=== PATIENT | female | born 2000 | race American Indian/Alaskan Native ===

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

== ENCOUNTER 2018-06-25 11:55 | Emergency (ER) | payer MEDICAID, OTHER ==
--- NOTE | 2018-06-25 12:37 | Emergency Department Report ---
ED HPI - General Chief complaint: Vaginal Bleeding Stated complaint: 4/5 WKS/SEVERE PAIN Time Seen by Provider: 06/25/18 12:34 Source: patient Mode of arrival: Ambulatory Limitations: No Limitations - History of Present Illness Initial comments: She has a 18-year-old -Welsh female who had a home test that was positive. She has a BODY SANDER appointment scheduled however in the meantime she is started having vaginal spotting. The bleeding is white. There is no discharge. She is having no abdominal pain. No fever. No abdominal tenderness. No CVA tenderness. What she shares with me is different than that shared with nurses. MD Complaint: vaginal bleeding -: Sudden Associated symptoms: vaginal bleeding Vaginal bleeding: light :: Yes Last menstrual period: 05/18/18 Pre- care: none - Related Data Previous Rx's Medication Instructions Recorded Last Taken Type Docusate Sodium [Colace] 100 mg PO BID PRN #20 capsule 03/23/17 Unknown Rx Nitrofurantoin [place]/M-Cryst 100 mg PO Q12HR #14 capsule 03/23/17 Unknown Rx [Macrobid CAP] RX: Magnesium Citrate [Citrate of 300 ml PO NOW #1 bottle 03/23/17 Unknown Rx Magnesia] Metoclopramide HCl [Reglan TAB] 5 mg PO TID #12 tablet 06/21/18 Unknown Rx Nitrofurantoin Monohyd/M-Cryst 100 mg PO BID #14 capsule 06/21/18 Unknown Rx [Macrobid 100 mg Capsule] Allergies Allergy/AdvReac Type Severity Reaction Status Date / Time No Known Allergies Allergy Verified 06/19/15 16:24 ED Review of Systems ROS: Stated complaint: 4/5 WKS/SEVERE PAIN Other details as noted in HPI Comment: All other systems reviewed and negative Constitutional: denies: see HPI Eyes: denies: eye pain ENT: denies: ear pain Respiratory: denies: orthopnea Cardiovascular: denies: palpitations Endocrine: denies: see HPI Gastrointestinal: denies: nausea Genitourinary: abnormal menses, other. denies: urgency, dysuria, frequency, hematuria, discharge Musculoskeletal: denies: back pain Skin: denies: rash Neurological: denies: weakness Psychiatric: denies: anxiety Hematological/Lymphatic: denies: easy bleeding (regular) ED Past Medical Hx - Past Medical History Previous Medical History?: Yes Hx Asthma: Yes - Surgical History Past Surgical History?: Yes Additional Surgical History: 2014 - Social History Smoking Status: Former Smoker Substance Use Type: None - Medications Home Medications: Home Medications Medication Instructions Recorded Confirmed Last Taken Type Docusate Sodium [Colace] 100 mg PO BID PRN #20 capsule 03/23/17 Unknown Rx Nitrofurantoin [place]/M-Cryst 100 mg PO Q12HR #14 capsule 03/23/17 Unknown Rx [Macrobid CAP] RX: Magnesium Citrate [Citrate of 300 ml PO NOW #1 bottle 03/23/17 Unknown Rx Magnesia] Metoclopramide HCl [Reglan TAB] 5 mg PO TID #12 tablet 06/21/18 Unknown Rx Nitrofurantoin Monohyd/M-Cryst 100 mg PO BID #14 capsule 06/21/18 Unknown Rx [Macrobid 100 mg Capsule] ED Physical Exam - General Limitations: No Limitations General appearance: alert - Head Head exam: Present: atraumatic - Eye Eye exam: Present: normal appearance, EOMI Pupils: Present: normal accommodation - ENT ENT exam: Present: normal exam - Neck Neck exam: Present: normal inspection - Respiratory Respiratory exam: Present: normal lung sounds bilaterally - Cardiovascular Cardiovascular Exam: Present: regular rate - GI/Abdominal GI/Abdominal exam: Present: soft, normal bowel sounds. Absent: tenderness - Rectal Rectal exam: Absent: deferred - External exam: Present: normal external exam, other (os closed) Speculum exam: Present: vaginal bleeding. Absent: cervical discharge, foreign body Bi-manual exam: Present: normal bi-manual exam - Extremities Exam Extremities exam: Present: normal inspection, full ROM - Back Exam Back exam: Present: normal inspection, full ROM - Neurological Exam Neurological exam: Present: alert, oriented X3 - Psychiatric Psychiatric exam: Present: normal affect, normal mood - Skin Skin exam: Present: warm, dry ED Course Vital Signs 06/25/18 06/25/18 06/25/18 12:04 16:59 17:11 Temperature 98.7 F 98.7 F Pulse Rate 73 65 65 Respiratory 18 18 Rate Blood Pressure 124/57 113/74 O2 Sat by Pulse 100 100 100 Oximetry ED Medical Decision Making - Lab Data Result diagrams: 06/25/18 12:49 06/25/18 12:49 - Radiology Data Radiology results: report reviewed, image reviewed - Medical Decision Making hcg noted rh pos no anemia ultrasound noted pt educated on plan of care will follow up with obgyn pt shares she has been trying to get but has had difficulty Labs 06/25/18 06/25/18 06/25/18 12:49 12:49 12:49 WBC 5.7 RBC 4.57 Hgb 10.1 Hct 31.7 MCV 69 L MCH 22 L MCHC 32 RDW 16.5 H Plt Count 457 H Sodium 135 L Potassium 4.2 Chloride 99.5 Carbon Dioxide 23 Anion Gap 17 BUN 8 Creatinine 0.5 L Estimated GFR > 60 BUN/Creatinine Ratio 16 Glucose 90 Calcium 9.4 HCG, Quant 97574 H Urine Color Urine Turbidity Urine pH Ur Specific [place] Urine Protein Urine Glucose (UA) Urine Ketones Urine Blood Urine Nitrite Urine Bilirubin Urine Urobilinogen Ur Leukocyte Esterase Urine WBC (Auto) Urine RBC (Auto) U Epithel Cells (Auto) Urine Mucus Urine HCG, Qual Blood Type 06/25/18 06/25/18 12:49 13:04 WBC RBC Hgb Hct MCV MCH MCHC RDW Plt Count Sodium Potassium Chloride Carbon Dioxide Anion Gap BUN Creatinine Estimated GFR BUN/Creatinine Ratio Glucose Calcium HCG, Quant Urine Color Yellow Urine Turbidity Clear Urine pH 6.0 Ur Specific [place] 1.015 Urine Protein <15 mg/dl Urine Glucose (UA) Neg Urine Ketones Neg Urine Blood Neg Urine Nitrite Neg Urine Bilirubin Neg Urine Urobilinogen < 2.0 Ur Leukocyte Esterase Neg Urine WBC (Auto) 1.0 Urine RBC (Auto) 1.0 U Epithel Cells (Auto) 6.0 Urine Mucus Few Urine HCG, Qual Positive A Blood Type A POSITIVE - Differential Diagnosis ro spont ab Critical care attestation.: If time is entered above; I have spent that time in minutes in the direct care of this critically ill patient, excluding procedure time. ED Disposition Clinical Impression: , Threatened Disposition: - TO HOME OR SELFCARE Is pt being admited?: No Does the pt Need Aspirin: No Condition: Stable Instructions: Threatened Miscarriage (ED), (ED) Additional Instructions: PELVIC REST MULTIVIT DAILY HYDRATE WELL WITH WATER FOLLOW UP WITH OBGYN [place] [id number] BLOOD TYPE IS RH POS TYLENOL FOR ACHES AND PAINS Referrals: PRIMARY CARE, [Primary Care Provider] - 3-5 Days Forms: Work/School Release Form(ED) Time of Disposition: 16:48
[2018-06-25 13:01] LABS: Hematocrit 31.7 % (30.3-42.9); Hemoglobin 10.1 gm/dl (10.1-14.3); Mean Corpuscular HGB Conc 32 % (30-34); Mean Corpuscular Volume 69 fl (79-97); Platelet Count 457 K/mm3 (140-440); Red Blood Count 4.57 M/mm3 (3.65-5.03); Red Cell Distribution Width 16.5 % (13.2-15.2)
[2018-06-25 13:21] LABS: BUN/Creatinine Ratio 16; Blood Urea Nitrogen 8 mg/dL (7-17); Calcium 9.4 mg/dL (8.4-10.2); Hemolysis Index 3
[2018-06-25 13:31] LABS: Bilirubin,Urine NEG (Negative); Blood,Urine NEG (Negative); Mucus,Urine FEW /HPF; Protein,Urine <15 mg/dL mg/dL (Negative); Urobilinogen,Urine < 2.0 mg/dL (<2.0)
[2018-06-25 13:34] LABS: Color,Urine Yellow (Yellow); HCG Qualitative,Urine Positive (Negative)
--- NOTE | 2018-06-25 16:40 | Ultrasound Report ---
FINAL REPORT PROCEDURE: Obstetrical ultrasound. TECHNIQUE: Real-time transabdominal sonography of the uterus, placenta, amniotic fluid, adnexa, and fetus was performed with image documentation. Measurements were obtained to determine age/size. M-mode Doppler was used to document heartbeat. CPT 80090 HISTORY: Vaginal bleeding during . COMPARISON: No prior studies are available for comparison. FINDINGS: Image quality is limited because the patient's bladder was incompletely distended. The uterus measure s 9.9 centimeters x 5.2 centimeters x 5.7 centimeters. The myometrium is grossly normal. There may be an intrauterine gestational sac present, but this is suboptimally visualized. This should be better seen by transvaginal imaging. Both ovaries are grossly normal. IMPRESSION: Possible intrauterine gestational sac.
--- NOTE | 2018-06-25 16:44 | Ultrasound Report ---
FINAL REPORT PROCEDURE: Transvaginal obstetrical ultrasound. TECHNIQUE: Real-time transvaginal sonography of the uterus, placenta, amniotic fluid, adnexa, and fe tus was performed with image documentation. Measurements were obtained to determine age/size. M -mode Doppler was used to document heartbeat. CPT 58317 HISTORY: Vaginal bleeding during . COMPARISON: No prior studies are available for comparison. FINDINGS: The uterus appears normal in size. The myometrium is uniform. There is probably a nabothian cyst pres ent. There is an intrauterine gestational sac. A yolk sac and very small pole are visible. The crown-rump length measurement is only 1.7 millimeters. This is too small to estimate a menstrual age. A definite heartbeat was not detected. Again it may be too early. The mean gestational sac diameter is 14 millimeters. This indicates a menstrual age of 6 weeks 2 days. The estimated date of confinemen t would be 02/16/2019. Both ovaries appear normal in size. There is a cyst in the right ovary measuri ng 2.1 centimeters. IMPRESSION: Very early intrauterine . Follow-up recommended.
[2018-06-25 17:11] VITALS: BP 113/74
== END 2018-06-25 17:12 | disposition home or self-care (01) ==
LOC: ED 11:55
DX: O20.0 Threatened abortion (principal); O99.511 Diseases of the respiratory system complicating pregnancy, first trimester; J45.909 Unspecified asthma, uncomplicated; Z87.891 Personal history of nicotine dependence; Z3A.01 Less than 8 weeks gestation of pregnancy
CPT/HCPCS: 36415; 76801; 76817; 80048; 81001; 81025; 84702; 85027; 86900; 86901

== ENCOUNTER 2018-08-06 00:23 | Emergency (ER) | payer MEDICAID ==
--- NOTE | 2018-08-06 03:45 | Emergency Department Report ---
ED Abdominal Pain HPI - General Chief Complaint: Vaginal Bleeding Stated Complaint: PREG 10 WKS/CANNOT EAT/DRINK Time Seen by Provider: 08/06/18 03:16 Source: patient Mode of arrival: Ambulatory Limitations: No Limitations - Related Data Previous Rx's Medication Instructions Recorded Last Taken Type Docusate Sodium [Colace] 100 mg PO BID PRN #20 capsule 03/23/17 Unknown Rx Magnesium Citrate [Citrate of 300 ml PO NOW #1 bottle 03/23/17 Unknown Rx Magnesia] Nitrofurantoin [place]/M-Cryst 100 mg PO Q12HR #14 capsule 03/23/17 Unknown Rx [Macrobid CAP] Metoclopramide HCl [Reglan TAB] 5 mg PO TID #12 tablet 06/21/18 Unknown Rx Nitrofurantoin Monohyd/M-Cryst 100 mg PO BID #14 capsule 06/21/18 Unknown Rx [Macrobid 100 mg Capsule] Allergies Allergy/AdvReac Type Severity Reaction Status Date / Time No Known Allergies Allergy Verified 06/19/15 16:24 ED Review of Systems ROS: Stated complaint: PREG 10 WKS/CANNOT EAT/DRINK Other details as noted in HPI ED Past Medical Hx - Past Medical History Hx Asthma: Yes - Surgical History Additional Surgical History: 2014 - Social History Smoking Status: Former Smoker Substance Use Type: None - Medications Home Medications: Home Medications Medication Instructions Recorded Confirmed Last Taken Type Docusate Sodium [Colace] 100 mg PO BID PRN #20 capsule 03/23/17 Unknown Rx Magnesium Citrate [Citrate of 300 ml PO NOW #1 bottle 03/23/17 Unknown Rx Magnesia] Nitrofurantoin [place]/M-Cryst 100 mg PO Q12HR #14 capsule 03/23/17 Unknown Rx [Macrobid CAP] Metoclopramide HCl [Reglan TAB] 5 mg PO TID #12 tablet 06/21/18 Unknown Rx Nitrofurantoin Monohyd/M-Cryst 100 mg PO BID #14 capsule 06/21/18 Unknown Rx [Macrobid 100 mg Capsule] ED Physical Exam - General Limitations: No Limitations Critical care attestation.: If time is entered above; I have spent that time in minutes in the direct care of this critically ill patient, excluding procedure time. ED Disposition Condition: Stable Referrals: CONY BURCIAGA MD [Primary Care Provider] - 3-5 Days
--- NOTE | 2018-08-06 04:26 | Emergency Department Report ---
ED N/V/D HPI - General Chief complaint: Vaginal Bleeding Stated complaint: PREG 10 WKS/CANNOT EAT/DRINK Time Seen by Provider: 08/06/18 03:16 Source: patient Mode of arrival: Ambulatory Limitations: No Limitations - History of Present Illness MD complaint: nausea, vomiting, diarrhea, abdominal pain - Related Data Previous Rx's Medication Instructions Recorded Last Taken Type Docusate Sodium [Colace] 100 mg PO BID PRN #20 capsule 03/23/17 Unknown Rx Magnesium Citrate [Citrate of 300 ml PO NOW #1 bottle 03/23/17 Unknown Rx Magnesia] Nitrofurantoin [place]/M-Cryst 100 mg PO Q12HR #14 capsule 03/23/17 Unknown Rx [Macrobid CAP] Metoclopramide HCl [Reglan TAB] 5 mg PO TID #12 tablet 06/21/18 Unknown Rx Nitrofurantoin Monohyd/M-Cryst 100 mg PO BID #14 capsule 06/21/18 Unknown Rx [Macrobid 100 mg Capsule] Allergies Allergy/AdvReac Type Severity Reaction Status Date / Time No Known Allergies Allergy Verified 06/19/15 16:24 ED Review of Systems ROS: Stated complaint: PREG 10 WKS/CANNOT EAT/DRINK Other details as noted in HPI ED Past Medical Hx - Past Medical History Hx Asthma: Yes - Surgical History Additional Surgical History: 2014 - Social History Smoking Status: Former Smoker Substance Use Type: None - Medications Home Medications: Home Medications Medication Instructions Recorded Confirmed Last Taken Type Docusate Sodium [Colace] 100 mg PO BID PRN #20 capsule 03/23/17 Unknown Rx Magnesium Citrate [Citrate of 300 ml PO NOW #1 bottle 03/23/17 Unknown Rx Magnesia] Nitrofurantoin [place]/M-Cryst 100 mg PO Q12HR #14 capsule 03/23/17 Unknown Rx [Macrobid CAP] Metoclopramide HCl [Reglan TAB] 5 mg PO TID #12 tablet 06/21/18 Unknown Rx Nitrofurantoin Monohyd/M-Cryst 100 mg PO BID #14 capsule 06/21/18 Unknown Rx [Macrobid 100 mg Capsule] ED Physical Exam - General Limitations: No Limitations Critical care attestation.: If time is entered above; I have spent that time in minutes in the direct care of this critically ill patient, excluding procedure time. ED Disposition Condition: Stable Referrals: CONY BURCIAGA MD [Primary Care Provider] - 3-5 Days
[2018-08-06 05:04] LABS: Amorphous Crystals,Urine 2+; Bilirubin,Urine NEG (Negative); Blood,Urine NEG (Negative); Color,Urine Yellow (Yellow); Mucus,Urine 3+ /HPF; Urobilinogen,Urine < 2.0 mg/dL (<2.0)
[2018-08-06 05:08] LABS: WBC,Urine < 1.0 /HPF (0.0-6.0)
== END 2018-08-06 04:30 | disposition left against medical advice (07) ==
LOC: ED 00:23
DX: O26.891 Other specified pregnancy related conditions, first trimester (principal); Z53.21 Procedure and treatment not carried out due to patient leaving prior to being seen by health care provider
CPT/HCPCS: 81001

== ENCOUNTER 2018-12-31 01:54 | Outpatient (CLI) | payer MEDICAID ==
[2018-12-31 02:19] VITALS: BP 124/80
[2018-12-31] MEDS ORDERED: LACTATED RINGERS 500 ML IV ONE (02:19)
== END 2018-12-31 03:25 | disposition home or self-care (01) ==
LOC: TRG 01:54
PROVIDERS: ATTEND Obstetrics & Gynecology
DX: O62.9 Abnormality of forces of labor, unspecified (principal); O24.410 Gestational diabetes mellitus in pregnancy, diet controlled; O99.513 Diseases of the respiratory system complicating pregnancy, third trimester; J45.909 Unspecified asthma, uncomplicated; Z3A.31 31 weeks gestation of pregnancy
CPT/HCPCS: 59025; 87086; J7120

== ENCOUNTER 2019-02-12 15:32 | Outpatient (CLI) | payer MEDICAID ==
[2019-02-12 15:58] VITALS: BP 135/80
== END 2019-02-12 16:44 | disposition home or self-care (01) ==
LOC: TRG 15:32
PROVIDERS: ATTEND Obstetrics & Gynecology
DX: O47.1 False labor at or after 37 completed weeks of gestation (principal); Z3A.38 38 weeks gestation of pregnancy
CPT/HCPCS: 59025

== ENCOUNTER 2019-02-22 00:16 | Outpatient (CLI) | payer MEDICAID ==
[2019-02-22] MEDS ORDERED: LACTATED RINGERS 1,000 ML IV ONE (01:03)
[2019-02-22 01:16] VITALS: BP 130/74
== END 2019-02-22 02:24 | disposition home or self-care (01) ==
LOC: TRG 00:16
PROVIDERS: ATTEND Obstetrics & Gynecology
DX: O26.893 Other specified pregnancy related conditions, third trimester (principal); R10.30 Lower abdominal pain, unspecified; G43.909 Migraine, unspecified, not intractable, without status migrainosus; Z3A.39 39 weeks gestation of pregnancy; Z87.891 Personal history of nicotine dependence
CPT/HCPCS: 59025; 96360; J7120

== ENCOUNTER 2019-02-27 16:13 | Inpatient (IN) | payer MEDICAID ==
[2019-02-27] MEDS ORDERED: LACTATED RINGERS 1,000 ML ONE (17:13)
--- NOTE | 2019-02-27 17:34 | History and Physical Report ---
History of Present Illness Date of examination: 02/27/19 Date of admission: 02/27/19 Chief complaint: Contractions, elevated BP, and late decels at triage. History of present illness: Patient is a 18 yo at 40.1 weeks EGA who presents reporting contractions q6-7 minutes since this morning. She reports positive movement, denies LOF or vaginal bleeding. Denies PIZARRO, scotomata, nausea, RUQ or epigastric pain. She has had care with [facility] supervisor since 14 weeks EGA, and has not been seen since 35 weeks EGA. 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 ) Family/Genetic History: diabetes - Obstetrical History Expected Date of Delivery: 02/26/19 Actual Gestation: 40 Week(s) 1 Day(s) : 2 Para: 0 Hx # Term Pregnancies: 0 Spontaneous Abortions: 1 Induced : 0 Number of Living Children: 0 Medications and Allergies Allergies Allergy/AdvReac Type Severity Reaction Status Date / Time No Known Allergies Allergy Verified 06/19/15 16:24 Home Medications Medication Instructions Recorded Confirmed Last Taken Type Docusate Sodium [Colace] 100 mg PO BID PRN #20 capsule 03/23/17 Unknown Rx Nitrofurantoin [place]/M-Cryst 100 mg PO Q12HR #14 capsule 03/23/17 Unknown Rx [Macrobid CAP] RX: Magnesium Citrate [Citrate of 300 ml PO NOW #1 bottle 03/23/17 Unknown Rx Magnesia] Metoclopramide HCl [Reglan TAB] 5 mg PO TID #12 tablet 06/21/18 Unknown Rx Nitrofurantoin Monohyd/M-Cryst 100 mg PO BID #14 capsule 06/21/18 Unknown Rx [Macrobid 100 mg Capsule] Review of Systems All systems: negative Eyes: no blurred vision, no diplopia Cardiovascular: no chest pain Respiratory: no shortness of breath Gastrointestinal: no nausea Genitourinary: contractions, no vaginal bleeding, no vaginal discharge, no leakage of fluid, no genital sores Neurological: no headaches - Vital Signs Vital signs: Vital Signs Pulse Pulse Ox 97 H 99 02/27/19 16:16 02/27/19 16:16 Temp Pulse Resp BP Pulse Ox 99.3 F 89 21 128/88 99 02/27/19 16:34 02/27/19 17:19 02/27/19 16:34 02/27/19 17:19 02/27/19 17:16 - Physical Exam Lungs: Positive: Normal air movement Abdomen: Positive: normal appearance, soft (gravid) Genitourinary (Female): Positive: normal external genitalia, normal perenium Vagina: Positive: normal moisture Uterus: Positive: enlarged (gravid), normal contour Anus/Rectum: Positive: normal perianal skin Extremities: Positive: normal Deep Tendon Reflex Grade: Normal +2 - Obstetrical FHR: category 2 (2 late decelerations in a 45 minute period, moderate variability, positive accelerations) Uterine Contraction Monitor Mode: External Cervical Dilatation: 3 Cervical Effacement Percentage: 60 station: -2 Uterine Contraction Frequency (min): 6 Uterine Contraction Duration: 60 Uterine Contraction Pattern: Regular Uterine Tone Measurement Phase: Contraction Uterine Contraction Intensity: Moderate Results All other labs normal. Assessment and Plan 18 yo at 40.1 weeks EGA Early labor Elevated blood pressure without diagnosis of gestational hypertension- collect PIH labs Limited care at term- BPP now Admit to L&D for monitoring and augmentation of labor GBS unknown- administer Ampicillin prophylaxis HSV seropositive- no current outbreaks Asthma- no Hemabate Glucose intolerant, no 3 hr GTT- assess glucose Anemia, receiving iron infusions Augment with Pitocin, anticipate
[2019-02-27] MEDS ORDERED: NARCAN 0.4 MG/1 ML IV PRN (17:37)
[2019-02-27] MEDS ORDERED: STADOL IV PRN (17:37)
[2019-02-27] MEDS ORDERED: ZOFRAN IV PRN (17:37)
[2019-02-27] MEDS ORDERED: SUBLIMAZE IV PRN (17:37)
[2019-02-27] MEDS ORDERED: BRETHINE IVP PRN (17:37)
[2019-02-27] MEDS ORDERED: PHENERGAN PO PRN (17:37)
[2019-02-27] MEDS ORDERED: BRETHINE SUB-Q PRN (17:37)
[2019-02-27] MEDS ORDERED: MINERAL OIL PO PRN (17:37)
[2019-02-27] MEDS ORDERED: XYLOCAINE 2% INFILTRATI ONE (17:37)
[2019-02-27] MEDS ORDERED: AMPICILLIN/NS 2 GM/100 ML 2 GM/100 ML BAG IV ONE ×2 (17:57→23:00)
[2019-02-27] MEDS ORDERED: PITOCin/NS 30 UNIT/500ML 30 UNITS/500 ML BAG IV SCH ×2 (18:00)
[2019-02-27] MEDS ORDERED: LACTATED RINGERS 1,000 ML IV SCH ×2 (18:00)
[2019-02-27] MEDS ORDERED: PITOCin/NS 20 UNIT/1000ML DRIP 20 UNITS/1,000 ML BAG IV SCH (18:00)
[2019-02-27 19:23] LABS: Hematocrit 32.5 % (30.3-42.9); Hemoglobin 10.3 gm/dl (10.1-14.3); Mean Corpuscular HGB Conc 32 % (30-34); Mean Corpuscular Volume 72 fl (79-97); Platelet Count 363 K/mm3 (140-440); Red Blood Count 4.52 M/mm3 (3.65-5.03)
[2019-02-27 19:31] LABS: Red Cell Distribution Width 28.8 % (13.2-15.2)
[2019-02-27 19:43] LABS: Alanine Aminotransferase 8 units/L (7-56); Uric Acid 4.8 mg/dL (3.5-7.6)
[2019-02-27 19:51] LABS: Bilirubin,Urine NEG (Negative); Blood,Urine NEG (Negative); Color,Urine Yellow (Yellow); Protein,Urine <15 mg/dL mg/dL (Negative); Urobilinogen,Urine < 2.0 mg/dL (<2.0)
--- NOTE | 2019-02-27 19:57 | Progress Note ---
Assessment and Plan 18 yo at 40.1 weeks EGA Early labor Elevated blood pressure without diagnosis of gestational hypertension GBS unknown- administer Ampicillin prophylaxis Asthma- no Hemabate Glucose intolerant, no 3 hr GTT- assess glucose Augment with Pitocin, anticipate Subjective - Subjective Date of service: 02/27/19 Principal diagnosis: Elevated BP and late decelerations Interval history: Pt experienced one 3-minute long contraction. Patient reports: movement normal, no loss of fluid Objective - Vital Signs Vital Signs: Vital Signs - 12hr 02/27/19 02/27/19 02/27/19 16:16 16:19 16:21 Temperature Pulse Rate 97 H 96 H 93 H Respiratory Rate Blood Pressure 130/74 Blood Pressure [Left] O2 Sat by Pulse 99 99 Oximetry 02/27/19 02/27/19 02/27/19 16:26 16:31 16:34 Temperature 99.3 F Pulse Rate 84 87 89 Respiratory 21 Rate Blood Pressure 139/75 Blood Pressure 139/75 [Left] O2 Sat by Pulse 99 99 99 Oximetry 02/27/19 02/27/19 02/27/19 16:36 16:41 16:46 Temperature Pulse Rate 91 H 99 H 88 Respiratory Rate Blood Pressure Blood Pressure [Left] O2 Sat by Pulse 100 98 98 Oximetry 02/27/19 02/27/19 02/27/19 16:50 16:51 16:56 Temperature Pulse Rate 91 H 96 H 90 Respiratory Rate Blood Pressure 132/84 Blood Pressure [Left] O2 Sat by Pulse 98 99 Oximetry 02/27/19 02/27/19 02/27/19 17:01 17:05 17:06 Temperature Pulse Rate 88 90 89 Respiratory Rate Blood Pressure 122/83 Blood Pressure [Left] O2 Sat by Pulse 99 99 Oximetry 02/27/19 02/27/19 02/27/19 17:11 17:16 17:19 Temperature Pulse Rate 92 H 87 89 Respiratory Rate Blood Pressure 128/88 Blood Pressure [Left] O2 Sat by Pulse 99 99 Oximetry 02/27/19 02/27/19 02/27/19 17:34 17:50 18:19 Temperature Pulse Rate 95 H 83 92 H Respiratory Rate Blood Pressure 135/83 135/81 145/70 Blood Pressure [Left] O2 Sat by Pulse Oximetry 02/27/19 02/27/19 02/27/19 19:20 19:36 19:53 Temperature Pulse Rate 81 87 93 H Respiratory Rate Blood Pressure 145/92 123/71 135/90 Blood Pressure [Left] O2 Sat by Pulse Oximetry - Exam Lungs: Normal air movement Abdomen: Present: normal appearance, soft Uterus: Present: normal FHR: category 1 Uterine Contraction Monitor Mode: External Cervical Dilatation: 3 Cervical Effacement Percentage: 60 station: -2 Uterine Contraction Frequency (min): 6 Uterine Contraction Duration: 1-3 minutes Uterine Contraction Pattern: Irregular - Labs Labs: Abnormal Labs 02/27/19 02/27/19 18:38 18:38 MCV 72 L MCH 23 L RDW 28.8 H Creatinine 0.4 L Lactate Dehydrogenase 302 H Laboratory Results - last 24 hr 02/27/19 02/27/19 02/27/19 18:38 18:38 18:38 WBC 10.2 RBC 4.52 Hgb 10.3 Hct 32.5 MCV 72 L MCH 23 L MCHC 32 RDW 28.8 H Plt Count 363 Creatinine 0.4 L Estimated GFR > 60 Uric Acid 4.8 AST 27 ALT 8 Lactate Dehydrogenase 302 H Urine Bilirubin Neg Urine RBC (Auto) 5.0 U Epithel Cells (Auto) 2.0
[2019-02-27] MEDS ORDERED: AMPICILLIN/NS 1 GM/50 ML 1 GM/50 ML BAG IV SCH (21:39)
--- NOTE | 2019-02-28 08:16 | Anesthesia Consultation ---
Anesthesia Consult and Med Hx Date of service: 02/28/19 - Airway Anesthetic Teeth Evaluation: Good ROM Head & Neck: Adequate Mental/Hyoid Distance: Adequate Mallampati Class: Class II Intubation Access Assessment: Probably Good - Pulmonary Exam CTA: Yes - Cardiac Exam Cardiac Exam: RRR - Pre-Operative Health Status ASA Pre-Surgery Classification: ASA2 Proposed Anesthetic Plan: Epidural - Pulmonary Hx Smoking: No Hx Asthma: No Hx Respiratory Symptoms: No SOB: No COPD: No Home Oxygen Therapy: No Hx Pneumonia: No Hx Sleep Apnea: No - Cardiovascular System Hx Hypertension: No Hx Coronary Artery Disease: No Hx Heart Attack/AMI: No Hx Angina: No Hx Percutaneous Transluminal Coronary Angioplasty (PTCA): No Hx Cardia Arrhythmia: No Hx Pacemaker: No Hx Internal Defibrillator: No Hx Valvular Heart Disease: No Hx Heart Murmur: No Hx Peripheral Vascular Disease: No - Central Nervous System Hx Neuromuscular Disorder: No Hx Seizures: No CVA: No Hx Back Pain: No Hx Psychiatric Problems: No - Gastrointestinal Hx Ulcer: No Hx Gastroesophageal Reflux Disease: No - Endocrine Hx Renal Disease: No Hx End Stage Renal Disease: No Hx Cirrhosis: No Hx Liver Disease: No Hx Insulin Dependent Diabetes: No Hx Non-Insulin Dependent Diabetes: No Hx Thyroid Disease: No Hx Hypothyroidism: No Hx Hyperthyroidism: No - Hematic Hx Anemia: Yes Hx Sickle Cell Disease: No - Other Systems Hx Alcohol Use: No Hx Substance Use: No Hx Cancer: No Hx Obesity: Yes (80 BMI)
[2019-02-28] MEDS ORDERED: NARCAN 2 MG/2 ML IV PRN (08:30)
[2019-02-28] MEDS ORDERED: fentaNYL-BUPIV 2 MCG/ML-0.125% 200 MCG/100 ML BAG EPIDURAL SCH (09:00)
--- NOTE | 2019-02-28 10:41 | Procedure Note ---
OB Delivery Note - Delivery Date of Delivery: 02/28/19 Surgeon: MARLEN LUCAS Estimated blood loss: other (400 mL) - Vaginal Delivery presentation: vertex Delivery position: OA Intrapartum events: PROM->1hr before delivery, meconium, decreased FHT variability, mult.variable deceleratio, shoulder dystocia Delivery induction: oxytocin Delivery augmentation: pitocin Delivery monitor: external FHT, external uterine Route of delivery: Delivery placenta: spontaneous Delivery cord: 3 umbilical vessels Episiotomy: midline Delivery repair: vicryl Anesthesia: epidural Delivery comments: Pt progressed to complete/complete/+3 and pushed to deliver a viable female over midline episiotomy under epidural anesthesia via . Head delivered in EDGAR position. ~30 second shoulder dystocia resolved with suprapubic pressure and Usman position. Shoulders and body then delivered. Cord clamped and cut and handed to NICU staff in attendance. Cord blood collected. Placenta delivered spontaneously (3VC, intact). Vagina and perineum explored. Midline episiotomy with extension repaired with 2-0 Vicryl in a standard fashion. EBL 4 00 mL. - A at 1 minute: 6 at 5 minutes: 9 Gender: Female (3757g (8lb 5 oz) @ 0956 am)
[2019-02-28] MEDS ORDERED: TYLENOL PO PRN (13:35)
[2019-02-28] MEDS ORDERED: PHENERGAN PO PRN (13:35)
[2019-02-28] MEDS ORDERED: PHENERGAN PR PRN (13:35)
[2019-02-28] MEDS ORDERED: TUCKS PAD TP PRN (13:35)
[2019-02-28] MEDS ORDERED: ZOFRAN IV PRN (13:35)
[2019-02-28] MEDS ORDERED: DERMOPLAST TP PRN (13:35)
[2019-02-28] MEDS ORDERED: SODIUM CHLORIDE FLUSH SYRINGE 10 ML IV NR (13:35)
[2019-02-28] MEDS ORDERED: PITOCin/NS 20 UNIT/1000ML DRIP 20 UNITS/1,000 ML BAG IV SCH (13:35)
[2019-02-28] MEDS ORDERED: LANSINOH TP PRN ×2 (13:35)
[2019-02-28] MEDS ORDERED: DULCOLAX PR PRN (13:35)
[2019-02-28] MEDS ORDERED: BENADRYL PO PRN (13:35)
[2019-02-28] MEDS ORDERED: MILK OF MAGNESIA PO PRN (13:35)
[2019-02-28] MEDS: IBUPROFEN PO SCH ×2 (14:24→22:51)
[2019-02-28] MEDS: FEOSOL PO SCH (22:51)
[2019-02-28] MEDS: COLACE PO SCH (22:52)
[2019-02-28 23:27] LABS: Hemoglobin 8.9 gm/dl (10.1-14.3)
[2019-03-01] MEDS: IBUPROFEN PO SCH ×2 (06:39→12:42)
[2019-03-01] MEDS: FEOSOL PO SCH ×2 (09:56→22:01)
[2019-03-01] MEDS: COLACE PO SCH ×2 (09:56→22:01)
[2019-03-01] MEDS ORDERED: BOOSTRIX IM ONE (10:42)
[2019-03-01] MEDS ORDERED: M-M-R II VACCINE SUB-Q ONE (10:42)
--- NOTE | 2019-03-01 12:01 | Progress Note ---
Assessment and Plan Pt is PPD1 s/p Nursing well VSS Acute anemia- iron supplementation Anticipate discharge to home tomorrow Subjective - Subjective Principal diagnosis: Interval history: Pt is PPD1 s/p with shoulder dystocia Patient reports: appetite normal, voiding normally, pain well controlled, ambulating normally [place]: nursing well, bottle feeding (mostly breast) Objective - Vital Signs Latest vital signs: Vital Signs Temp Pulse Resp BP BP Pulse Ox 03/01/19 08:51 98.2 F 18 139/76 03/01/19 08:00 98.2 F 94 H 18 139/76 03/01/19 01:43 98.3 F 79 20 124/78 02/28/19 21:15 98.2 F 93 H 20 135/81 02/28/19 16:11 98.5 F 81 18 110/60 99 02/28/19 12:51 98.7 F 81 18 134/80 99 02/28/19 12:22 82 129/68 02/28/19 12:15 78 128/77 02/28/19 12:14 67 124/73 02/28/19 12:07 81 124/65 Intake and Output 02/28/19 03/01/19 03/01/19 23:59 07:59 15:59 Intake Total 360 240 Balance 360 240 Intake: Intake, Free Water 360 240 Other: # Voids Void 1 2 - Exam Lungs: Present: Normal air movement Abdomen: Present: normal appearance, soft Uterus: Present: normal, firm, fundal height below umbilicus Extremities: Present: normal - Labs Labs: Abnormal lab results 02/28/19 Range/Units 22:48 Hgb 8.9 L (10.1-14.3) gm/dl Hct 28.0 L (30.3-42.9) %
--- NOTE | 2019-03-01 13:37 | Discharge Summary ---
Providers - Providers Date of Admission: 02/27/19 18:51 Date of discharge: 03/01/19 Attending physician: MARLEN LUCSA Primary care physician: MARLEN LUCAS Hospitalization Reason for admission: other (Early labor with elevated BP and 2 late decels) Delivery: Procedure details: Augmented with Pitocin. Shoulder dystocia ~30 seconds resolved with Usman and suprapubic pressure. Episiotomy: midline (with extension) Other procedures: none complications: none Discharge diagnosis: IUP at term delivered baby: female Hospital course: Gestational hypertension diagnosed in hospital. Progressed to of viable infant, apgars 6/9. Met discharge criteria on PPD1. Condition at discharge: Good Disposition: DC-01 TO HOME OR SELFCARE Plan - Discharge Medications Prescriptions: Ferrous Sulfate [Ferrous Sulfate 324 MG] 324 mg PO BID #60 tablet. Ibuprofen [Motrin] 600 mg PO Q6H PRN #60 tablet PRN Reason: Pain - Provider Discharge Summary Activity: routine, no sex for 6 weeks, no heavy lifting 4 weeks, no strenuous exercise Diet: routine Instructions: routine Additional instructions: [] Smoking cessation referral if applicable(refer to patient education folder for contact #) [] Refer to [facility] Book[facility] Call your doctor immediately for: * Fever > 100.5 * Heavy vaginal bleeding ( >1 pad per hour) * Severe persistent headache * Shortness of breath * Reddened, hot, painful area to leg or breast * Drainage or odor from incision. * Keep incision clean and dry at all times and follow doctor's instructions regarding bathing/showering - Follow up plan Follow up: MARLEN LUCAS MD [Primary Care Provider] - 7 Days (Schedule appointment for blood pressure check at [facility]'s sql database administrator.)
[2019-03-01] MEDS: NORCO 5/325 PO PRN (22:01)
[2019-03-02] MEDS: IBUPROFEN PO SCH ×3 (04:20→07:31)
[2019-03-02] MEDS ORDERED: BOOSTRIX IM ONE (06:00)
[2019-03-02] MEDS: NORCO 5/325 PO PRN (07:31)
[2019-03-02 09:13] VITALS: BP 144/93
[2019-03-02] MEDS: FEOSOL PO SCH (10:44)
[2019-03-02] MEDS: COLACE PO SCH (10:44)
--- NOTE | 2019-03-02 12:46 | Progress Note ---
Assessment and Plan Pt is PPD2 s/p Bottle feeding Gestational hypertension Acute anemia- iron supplementation Discharge to home today Subjective - Subjective Date of service: 03/02/19 Principal diagnosis: Interval history: Pt is PPD2 s/p with shoulder dystocia. Gestational hypertension diagnosed in labor. Patient reports: appetite normal, voiding normally, pain well controlled, ambulating normally : doing well, bottle feeding Objective - Vital Signs Latest vital signs: Vital Signs Temp Pulse Resp BP Pulse Ox 03/02/19 07:44 73 144/93 100 03/02/19 01:51 98.6 F 82 18 132/78 96 03/01/19 16:50 98.5 F 99 H 18 140/79 99 Intake and Output 03/01/19 03/02/19 03/02/19 23:59 07:59 15:59 Intake Total 540 600 Balance 540 600 Intake: Oral 380 Intake, Free Water 160 600 Other: Total, Intake Amount 380 # Voids Void 2 4 # Bowel Movements 1 - Exam Lungs: Present: Normal air movement Abdomen: Present: normal appearance, soft Uterus: Present: normal, firm, fundal height below umbilicus Extremities: Present: normal
== END 2019-03-02 13:54 | disposition home or self-care (01) | DRG 775 ==
LOC: TRG 16:13 → LD 18:51 → OB 02-28 12:38
PROVIDERS: ADMIT Obstetrics & Gynecology; ATTEND Obstetrics & Gynecology
PROC: 10E0XZZ Delivery of Products of Conception, External Approach (ICD-10-PCS; principal; 2019-02-28)
PROC: 0W8NXZZ Division of Female Perineum, External Approach (ICD-10-PCS; 2019-02-28)
PROC: 3E0R3BZ Introduction of Anesthetic Agent into Spinal Canal, Percutaneous Approach (ICD-10-PCS; 2019-02-28)
PROC: 00HU33Z Insertion of Infusion Device into Spinal Canal, Percutaneous Approach (ICD-10-PCS; 2019-02-28)
PROC: 3E0234Z Introduction of Serum, Toxoid and Vaccine into Muscle, Percutaneous Approach (ICD-10-PCS; 2019-03-02)
DX: O13.4 Gestational [pregnancy-induced] hypertension without significant proteinuria, complicating childbirth (principal); O99.02 Anemia complicating childbirth; O99.52 Diseases of the respiratory system complicating childbirth; J45.909 Unspecified asthma, uncomplicated; O76 Abnormality in fetal heart rate and rhythm complicating labor and delivery; O66.0 Obstructed labor due to shoulder dystocia; Z37.0 Single live birth; Z23 Encounter for immunization; O77.0 Labor and delivery complicated by meconium in amniotic fluid; Z3A.40 40 weeks gestation of pregnancy
CPT/HCPCS: 36415; 81001; 82565; 83615; 84450; 84460; 84550; 85014; 85018; 85027; 86592; 86850; 86900; 86901; 88307; 90715; G0378; J0290; J0595; J2590; J7120

== ENCOUNTER 2020-07-23 14:18 | Emergency (ER) | payer MEDICAID ==
[2020-07-23 14:27] VITALS: BP 134/86
--- NOTE | 2020-07-23 17:31 | ED Elopement Review ---
ED Pt Elopement review - Results review Lab results: Patient eloped prior to my evaluation. - Call Back decision Pt Call Back Decision: No action required
== END 2020-07-23 14:30 | disposition left against medical advice (07) ==
LOC: ED 14:18
DX: M54.6 Pain in thoracic spine (principal); Z53.21 Procedure and treatment not carried out due to patient leaving prior to being seen by health care provider

== ENCOUNTER 2020-07-24 05:08 | Emergency (ER) | payer SELFPAY ==
[2020-07-24] MEDS ORDERED: SODIUM CHLORIDE 0.9% 1000 ML 1,000 ML IV ONE (05:18)
[2020-07-24] MEDS ORDERED: ONDANSETRON 4 MG/2 ML INJ IV ONE (05:18)
--- NOTE | 2020-07-24 05:23 | Event Note ---
ED Screening Note Date of service: 07/24/20 Time: 05:20 ED Screening Note: 20 yr old female with no significant pmhx presents to ED c/o generalized body aches including low abd pain radiating into her lower back. Onset 3 week ago, worse in the past week. associated symptoms include nausea, subjective fever, urinary frequency and feeling of constipation. This initial assessment/diagnostic orders/clinical plan/treatment(s) is/are subject to change based on patients health status, clinical progression and re- assessment by fellow clinical providers in the ED. Further treatment and workup at subsequent clinical providers discretion. Patient/guardian urged not to elope from the ED as their condition may be serious if not clinically assessed and managed. Initial orders include: Abdominal pain order set
[2020-07-24 05:57] LABS: Alanine Aminotransferase 11 units/L (7-56); Blood Urea Nitrogen 8 mg/dL (7-17); Calcium 9.3 mg/dL (8.4-10.2); Hemolysis Index 0
[2020-07-24 05:57] LABS: Basophils % (Auto) 0.2 % (0.0-1.8); Eosinophils # (Auto) 0.1 K/mm3 (0.0-0.4); Eosinophils % (Auto) 0.5 % (0.0-4.3); Hematocrit 31.9 % (30.3-42.9); Hemoglobin 10.3 gm/dl (10.1-14.3); Lymphocytes # (Auto) 2.4 K/mm3 (1.2-5.4); Lymphocytes % (Auto) 21.1 % (13.4-35.0); Mean Corpuscular HGB Conc 32 % (30-34); Mean Corpuscular Volume 72 fl (79-97); Monocytes % (Auto) 8.7 % (0.0-7.3); Platelet Count 661 K/mm3 (140-440); Red Blood Count 4.45 M/mm3 (3.65-5.03); Red Cell Distribution Width 16.6 % (13.2-15.2)
[2020-07-24 05:58] LABS: Alanine Aminotransferase 10 units/L (7-56); Albumin 4.1 g/dL (3.9-5)
[2020-07-24 05:58] LABS: BUN/Creatinine Ratio 13
[2020-07-24 05:59] LABS: Bilirubin,Direct < 0.2 mg/dL (0-0.2)
[2020-07-24 06:04] LABS: Bilirubin,Urine NEG (Negative); Blood,Urine SM (Negative); Color,Urine Amber (Yellow); Mucus,Urine 3+ /HPF
[2020-07-24 06:07] LABS: HCG Qualitative,Urine Negative (Negative)
[2020-07-24] MEDS ORDERED: traMADol 50 MG TAB PO ONE (06:28)
--- NOTE | 2020-07-24 08:51 | Emergency Department Report ---
ED General Adult HPI - General Chief complaint: Abdominal Pain Stated complaint: BODY PAINS;LOWER STOMACH/BACK Time Seen by Provider: 07/24/20 06:10 Source: patient Mode of arrival: Ambulatory Limitations: No Limitations - History of Present Illness Initial comments: This is a 20-year-old female who reports discomfort and bilateral flank pain of 3 weeks duration. She did not attempt to be seen by medical provider. She denies nausea. She did not take her temperature. She has had no chills. She denies any respiratory complaints. She she did note some urinary frequency. She does have a history of prior UTI. Patient's pain is mild at the time of my encounter. It is intermittent and never severe. -: Gradual, week(s) Location: abdomen Radiation: back Severity scale (0 -10): 4 Quality: aching Consistency: constant Improves with: none Worsens with: none Associated Symptoms: denies other symptoms Treatments Prior to Arrival: none - Related Data Previous Rx's Medication Instructions Recorded Last Taken Type Docusate Sodium [Colace] 100 mg PO BID PRN #20 capsule 03/23/17 Unknown Rx Magnesium Citrate [Citrate of 300 ml PO NOW #1 bottle 03/23/17 Unknown Rx Magnesia] Nitrofurantoin [place]/M-Cryst 100 mg PO Q12HR #14 capsule 03/23/17 Unknown Rx [Macrobid CAP] Metoclopramide HCl [Reglan TAB] 5 mg PO TID #12 tablet 06/21/18 Unknown Rx Nitrofurantoin Monohyd/M-Cryst 100 mg PO BID #14 capsule 06/21/18 Unknown Rx [Macrobid 100 mg Capsule] Ferrous Sulfate [Ferrous Sulfate 324 mg PO BID #60 tablet. 03/01/19 Unknown Rx 324 MG] Ibuprofen [Motrin] 600 mg PO Q6H PRN #60 tablet 03/01/19 Unknown Rx Azithromycin [Zithromax ORAL PWDR] 1 gm PO ONCE #1 packet 07/24/20 Unknown Rx cefUROXime [Ceftin] 250 mg PO Q12H #20 tablet 07/24/20 Unknown Rx traMADoL [Ultram 50 MG tab] 50 mg PO ONCE #10 tablet 07/24/20 Unknown Rx Allergies Allergy/AdvReac Type Severity Reaction Status Date / Time No Known Allergies Allergy Verified 06/19/15 16:24 ED Review of Systems ROS: Stated complaint: BODY PAINS;LOWER STOMACH/BACK Other details as noted in HPI Constitutional: denies: chills, fever Eyes: denies: eye pain, eye discharge, vision change ENT: denies: ear pain, throat pain Respiratory: denies: cough, shortness of breath, wheezing Cardiovascular: denies: chest pain, palpitations Endocrine: no symptoms reported Gastrointestinal: as per HPI, abdominal pain. denies: nausea, vomiting, diarrhea Genitourinary: frequency. denies: urgency, dysuria, discharge Musculoskeletal: back pain. denies: joint swelling, arthralgia Skin: denies: rash, lesions Neurological: denies: headache, weakness, paresthesias Psychiatric: denies: anxiety, depression Hematological/Lymphatic: denies: easy bleeding, easy bruising ED Past Medical Hx - Past Medical History Previous Medical History?: No Hx Hypertension: No Hx Heart Attack/AMI: No Hx Congestive Heart Failure: No Hx Diabetes: No Hx Deep Vein Thrombosis: No Hx Liver Disease: No Hx Renal Disease: No Hx Sickle Cell Disease: No Hx Seizures: No Hx Asthma: No Hx COPD: No Hx HIV: No - Surgical History Hx Pacemaker: No Hx Internal Defibrillator: No Additional Surgical History: 2014 - Social History Smoking Status: Never Smoker Substance Use Type: None - Medications Home Medications: Home Medications Medication Instructions Recorded Confirmed Last Taken Type Docusate Sodium [Colace] 100 mg PO BID PRN #20 capsule 03/23/17 03/02/19 Unknown Rx Magnesium Citrate [Citrate of 300 ml PO NOW #1 bottle 03/23/17 03/02/19 Unknown Rx Magnesia] Nitrofurantoin [place]/M-Cryst 100 mg PO Q12HR #14 capsule 03/23/17 03/02/19 Unknown Rx [Macrobid CAP] Metoclopramide HCl [Reglan TAB] 5 mg PO TID #12 tablet 06/21/18 03/02/19 Unknown Rx Nitrofurantoin Monohyd/M-Cryst 100 mg PO BID #14 capsule 06/21/18 03/02/19 Unknown Rx [Macrobid 100 mg Capsule] Ferrous Sulfate [Ferrous Sulfate 324 mg PO BID #60 tablet. 03/01/19 Unknown Rx 324 MG] Ibuprofen [Motrin] 600 mg PO Q6H PRN #60 tablet 03/01/19 Unknown Rx Azithromycin [Zithromax ORAL PWDR] 1 gm PO ONCE #1 packet 07/24/20 Unknown Rx cefUROXime [Ceftin] 250 mg PO Q12H #20 tablet 07/24/20 Unknown Rx traMADoL [Ultram 50 MG tab] 50 mg PO ONCE #10 tablet 07/24/20 Unknown Rx ED Physical Exam - General Limitations: No Limitations General appearance: alert, in no apparent distress - Head Head exam: Present: atraumatic, normocephalic - Eye Eye exam: Present: normal appearance. Absent: scleral icterus - ENT ENT exam: Present: mucous membranes moist - Neck Neck exam: Present: normal inspection - Respiratory Respiratory exam: Present: normal lung sounds bilaterally. Absent: respiratory distress - Cardiovascular Cardiovascular Exam: Present: regular rate, normal rhythm. Absent: systolic murmur, diastolic murmur, rubs, gallop - GI/Abdominal GI/Abdominal exam: Present: soft, normal bowel sounds. Absent: distended, tenderness, guarding, rebound, rigid - Extremities Exam Extremities exam: Present: normal inspection - Back Exam Back exam: Present: normal inspection, other. Absent: CVA tenderness (R), CVA tenderness (L), muscle spasm, paraspinal tenderness, vertebral tenderness - Neurological Exam Neurological exam: Present: alert, oriented X3, CN II-XII intact. Absent: motor sensory deficit - Psychiatric Psychiatric exam: Present: normal affect, normal mood - Skin Skin exam: Present: warm, dry, intact, normal color. Absent: rash ED Course Vital Signs 07/24/20 05:12 Temperature 98.3 F Pulse Rate 109 H Respiratory 17 Rate Blood Pressure 114/75 O2 Sat by Pulse 95 Oximetry - Reevaluation(s) Reevaluation #1: It would appear the patient symptoms are consistent with pyelonephritis. They are reasonably chronic. She was given ceftriaxone in the emergency department. She will be continued on 07/24/20 08:50 ED Medical Decision Making - Lab Data Result diagrams: 07/24/20 05:21 07/24/20 05:28 Laboratory Results - last 24 hr 07/24/20 07/24/20 07/24/20 05:21 05:21 05:28 WBC 11.3 H RBC 4.45 Hgb 10.3 Hct 31.9 MCV 72 L MCH 23 L MCHC 32 RDW 16.6 H Plt Count 661 H Lymph % (Auto) 21.1 [place] % (Auto) 8.7 H Eos % (Auto) 0.5 Baso % (Auto) 0.2 Lymph # (Auto) 2.4 [place] # (Auto) 1.0 H Eos # (Auto) 0.1 Baso # (Auto) 0.0 Seg Neutrophils % 69.5 Seg Neutrophils # 7.8 H Sodium 136 L Potassium 4.0 Chloride 99.9 Carbon Dioxide 24 Anion Gap 16 BUN 8 Creatinine 0.6 Estimated GFR > 60 BUN/Creatinine Ratio 13 Glucose 99 Calcium 9.3 Total Bilirubin 0.30 0.30 Direct Bilirubin < 0.2 Indirect Bilirubin 0.1 AST 13 14 ALT 10 11 Alkaline Phosphatase 107 106 Total Protein 7.3 7.3 Albumin 4.1 4.0 Albumin/Globulin Ratio 1.3 1.2 Lipase 13 HCG, Qual Urine Color Urine Turbidity Urine pH Ur Specific [place] Urine Protein Urine Glucose (UA) Urine Ketones Urine Blood Urine Nitrite Urine Bilirubin Urine Urobilinogen Ur Leukocyte Esterase Urine WBC (Auto) Urine RBC (Auto) U Epithel Cells (Auto) Urine Mucus Urine HCG, Qual 07/24/20 07/24/20 05:28 05:35 WBC RBC Hgb Hct MCV MCH MCHC RDW Plt Count Lymph % (Auto) [place] % (Auto) Eos % (Auto) Baso % (Auto) Lymph # (Auto) [place] # (Auto) Eos # (Auto) Baso # (Auto) Seg Neutrophils % Seg Neutrophils # Sodium Potassium Chloride Carbon Dioxide Anion Gap BUN Creatinine Estimated GFR BUN/Creatinine Ratio Glucose Calcium Total Bilirubin Direct Bilirubin Indirect Bilirubin AST ALT Alkaline Phosphatase Total Protein Albumin Albumin/Globulin Ratio Lipase HCG, Qual Negative Urine Color Janelle Urine Turbidity Cloudy Urine pH 5.0 Ur Specific [place] 1.029 Urine Protein 100 mg/dl Urine Glucose (UA) Neg Urine Ketones Neg Urine Blood Sm Urine Nitrite Neg Urine Bilirubin Neg Urine Urobilinogen 2.0 Ur Leukocyte Esterase Mod Urine WBC (Auto) 30.0 H Urine RBC (Auto) 22.0 U Epithel Cells (Auto) 19.0 H Urine Mucus 3+ Urine HCG, Qual Negative Critical care attestation.: If time is entered above; I have spent that time in minutes in the direct care of this critically ill patient, excluding procedure time. ED Disposition Clinical Impression: Acute pyelonephritis Disposition: DC TO HOME OR SELFCARE Is pt being admited?: No Does the pt Need Aspirin: No Condition: Stable Instructions: Abdominal Pain (ED), Pyelonephritis, Adult, [id number] Additional Instructions: Follow-up on your urine culture with primary care physician. Antibiotics as directed. Return any acute change or problem. 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 Prescriptions: cefUROXime [Ceftin] 250 mg PO Q12H #20 tablet traMADoL [Ultram 50 MG tab] 50 mg PO ONCE #10 tablet Azithromycin [Zithromax ORAL PWDR] 1 gm PO ONCE #1 packet Referrals: PRIMARY CAREMD [Primary Care Provider] - 3-5 Days [facility] [Provider Group] - 3-5 Days JUAN PABLO RAY MD [Staff Physician] - 3-5 Days Time of Disposition: 08:53
[2020-07-24 09:04] VITALS: BP 112/69
== END 2020-07-24 09:04 | disposition home or self-care (01) ==
LOC: ED 05:08
DX: N10 Acute pyelonephritis (principal); Z79.899 Other long term (current) drug therapy; Z98.890 Other specified postprocedural states
CPT/HCPCS: 36415; 80053; 80076; 81001; 81025; 83690; 84703; 85025; 87086; 96361; 96374; 99283; J2405; J7030

== ENCOUNTER 2020-11-06 15:38 | Emergency (ER) | payer SELFPAY | END 2020-11-06 16:15 | disposition left against medical advice (07) | LOC: ED 15:38 | DX: N89.8 Other specified noninflammatory disorders of vagina (principal); Z53.21 Procedure and treatment not carried out due to patient leaving prior to being seen by health care provider ==

== ENCOUNTER 2021-03-11 15:10 | Emergency (ER) | payer SELFPAY ==
[2021-03-11 15:29] VITALS: BP 96/56
--- NOTE | 2021-03-11 18:45 | Emergency Department Report ---
ED Abdominal Pain HPI - General Chief Complaint: Abdominal Pain Stated Complaint: BODYACHES Time Seen by Provider: 03/11/21 16:01 Source: patient Mode of arrival: Ambulatory Limitations: No Limitations - History of Present Illness Initial Comments: 20-year-old -Japanese female presents to the emergency room complaining of epigastric pain and lightheadedness. She also admits to nausea but no vomiting. She does admit that she smokes cigarettes drinks alcohol and smokes marijuana daily. Her last menstrual period was 03/06/2021. She reports that she is not vaccinated. Has no past medical history currently takes no meds on a daily basis states her pain is 8 out of 10 nothing makes it better worsens with movement and pain is constant but sharp. Patient denies having a primary care provider. MD Complaint: abdominal pain Location: epigastric Radiation: none Migration to: no migration Severity scale (0 -10): 8 Quality: stabbing Consistency: constant Improves With: nothing Worsens With: movement Associated Symptoms: nausea. denies: vomiting - Related Data LMP Date: 03/06/21 Previous Rx's Medication Instructions Recorded Last Taken Type Docusate Sodium [Colace] 100 mg PO BID PRN #20 capsule 03/23/17 Unknown Rx Magnesium Citrate [Citrate of 300 ml PO NOW #1 bottle 03/23/17 Unknown Rx Magnesia] Nitrofurantoin Nye/M-Cryst 100 mg PO Q12HR #14 capsule 03/23/17 Unknown Rx [Macrobid CAP] Metoclopramide HCl [Reglan TAB] 5 mg PO TID #12 tablet 06/21/18 Unknown Rx Nitrofurantoin Monohyd/M-Cryst 100 mg PO BID #14 capsule 06/21/18 Unknown Rx [Macrobid 100 mg Capsule] Ferrous Sulfate [Ferrous Sulfate 324 mg PO BID #60 tablet. 03/01/19 Unknown Rx 324 MG] Ibuprofen [Motrin] 600 mg PO Q6H PRN #60 tablet 03/01/19 Unknown Rx Azithromycin [Zithromax ORAL PWDR] 1 gm PO ONCE #1 packet 07/24/20 Unknown Rx cefUROXime [Ceftin] 250 mg PO Q12H #20 tablet 07/24/20 Unknown Rx traMADoL [Ultram 50 MG tab] 50 mg PO ONCE #10 tablet 07/24/20 Unknown Rx Allergies Allergy/AdvReac Type Severity Reaction Status Date / Time No Known Allergies Allergy Verified 03/11/21 15:29 ED Review of Systems ROS: Stated complaint: BODYACHES Other details as noted in HPI Comment: All other systems reviewed and negative ED Past Medical Hx - Past Medical History Hx Hypertension: No Hx Heart Attack/AMI: No Hx Congestive Heart Failure: No Hx Diabetes: No Hx Deep Vein Thrombosis: No Hx Liver Disease: No Hx Renal Disease: No Hx Sickle Cell Disease: No Hx Seizures: No Hx Asthma: No Hx COPD: No Hx HIV: No - Surgical History Hx Pacemaker: No Hx Internal Defibrillator: No Additional Surgical History: 2014 - Social History Smoking Status: Never Smoker Substance Use Type: None - Medications Home Medications: Home Medications Medication Instructions Recorded Confirmed Last Taken Type Docusate Sodium [Colace] 100 mg PO BID PRN #20 capsule 03/23/17 03/02/19 Unknown Rx Magnesium Citrate [Citrate of 300 ml PO NOW #1 bottle 03/23/17 03/02/19 Unknown Rx Magnesia] Nitrofurantoin Nye/M-Cryst 100 mg PO Q12HR #14 capsule 03/23/17 03/02/19 Unknown Rx [Macrobid CAP] Metoclopramide HCl [Reglan TAB] 5 mg PO TID #12 tablet 06/21/18 03/02/19 Unknown Rx Nitrofurantoin Monohyd/M-Cryst 100 mg PO BID #14 capsule 06/21/18 03/02/19 Unknown Rx [Macrobid 100 mg Capsule] Ferrous Sulfate [Ferrous Sulfate 324 mg PO BID #60 tablet.dr 03/01/19 Unknown Rx 324 MG] Ibuprofen [Motrin] 600 mg PO Q6H PRN #60 tablet 03/01/19 Unknown Rx Azithromycin [Zithromax ORAL PWDR] 1 gm PO ONCE #1 packet 07/24/20 Unknown Rx cefUROXime [Ceftin] 250 mg PO Q12H #20 tablet 07/24/20 Unknown Rx traMADoL [Ultram 50 MG tab] 50 mg PO ONCE #10 tablet 07/24/20 Unknown Rx ED Physical Exam - General Limitations: No Limitations General appearance: alert, in no apparent distress - Head Head exam: Present: atraumatic, normocephalic - Eye Eye exam: Present: normal appearance - Neck Neck exam: Present: normal inspection, full ROM - Respiratory Respiratory exam: Absent: accessory muscle use - Cardiovascular Cardiovascular Exam: Present: regular rate - Back Exam Back exam: Present: normal inspection - Neurological Exam Neurological exam: Present: alert, oriented X3, normal gait - Psychiatric Psychiatric exam: Present: normal affect, normal mood - Skin Skin exam: Present: warm, dry, intact, normal color. Absent: rash ED Course Vital Signs 03/11/21 15:27 Temperature 98.7 F Pulse Rate 79 Respiratory 18 Rate Blood Pressure 96/56 [Left] O2 Sat by Pulse 100 Oximetry ED Medical Decision Making - Medical Decision Making 20-year-old -[place] female presents to the emergency room complaining of epigastric pain and lightheadedness. She also admits to nausea but no vomiting. She does admit that she smokes cigarettes drinks alcohol and smokes marijuana daily. Her last menstrual period was 03/06/2021. She reports that she is not vaccinated. Has no past medical history currently takes no meds on a daily basis states her pain is 8 out of 10 nothing makes it better worsens with movement and pain is constant but sharp. Patient denies having a primary care provider. CBC CMP lipase urinalysis was ordered. Patient left before full examination was completed. Critical care attestation.: If time is entered above; I have spent that time in minutes in the direct care of this critically ill patient, excluding procedure time. ED Disposition Clinical Impression: Abdominal pain Disposition: 07 LEFT AWOL/ELOPED Is pt being admited?: No Does the pt Need Aspirin: No Condition: Undetermined Instructions: Abdominal Pain (ED)
[2021-03-11 19:21] LABS: Basophils % (Auto) 0.9 % (0.0-1.8); Eosinophils # (Auto) 0.3 K/mm3 (0.0-0.4); Eosinophils % (Auto) 5.9 % (0.0-4.3); Hematocrit 31.3 % (30.3-42.9); Hemoglobin 10.1 gm/dl (10.1-14.3); Lymphocytes # (Auto) 1.1 K/mm3 (1.2-5.4); Mean Corpuscular HGB Conc 32 % (30-34); Monocytes # (Auto) 0.7 K/mm3 (0.0-0.8); Monocytes % (Auto) 12.8 % (0.0-7.3); Platelet Count 453 K/mm3 (140-440); Red Cell Distribution Width 17.3 % (13.2-15.2)
[2021-03-11 19:45] LABS: Alanine Aminotransferase 12 units/L (7-56); Albumin 4.7 g/dL (3.9-5); Blood Urea Nitrogen 9 mg/dL (7-17); Calcium 9.6 mg/dL (8.4-10.2); Hemolysis Index 0
[2021-03-11 19:46] LABS: BUN/Creatinine Ratio 15
[2021-03-11 20:10] LABS: Mean Corpuscular Volume 70 fl (79-97)
== END 2021-03-12 03:00 | disposition left against medical advice (07) ==
LOC: ED 15:10
DX: R10.13 Epigastric pain (principal); R42 Dizziness and giddiness; Z79.899 Other long term (current) drug therapy
CPT/HCPCS: 36415; 80053; 85025; 99283